=== PATIENT | female | born 1975 | race Caucasian/White ===

== ENCOUNTER 2016-08-29 08:49 | Emergency (ER) | payer OTHER ==
[2016-08-29 09:08] VITALS: BP 137/62; PULSE 78; RESP 18; TEMP 98; O2SAT 97
[2016-08-29] MEDS ORDERED: predniSONE 20 MG TAB PO ONE (09:35)
--- NOTE | 2016-08-29 09:42 | UCPHY ---
H & P Time Seen by Provider: 08/29/16 09:26 Patient Type: Established HPI/ROS: This patient has a itchy rash that is diffuse in location for 19 days now. She is uncertain of the trigger for the symptoms. She did start Singulair 3 days prior to the onset of the rash that was initially truncal in location and a day 5 after starting Singulair the rash spread to extremities. She then DC Singulair 14 days ago and was seen in the [facility] started on a Medrol Dosepak with partial improvement. However the day after finishing her Medrol Dosepak the symptoms are worsening again. She saw her primary care physician on Tuesday the who did blood tests concerned over potential Churg- Kwan syndrome. The patient reports despite [id number] cortisone cream , and Benadryl she has significant itching that is making sleep difficult. She realized that she started a new detergent for her laundry shortly before the onset of the symptoms as well and recently changed back to her original detergent after her visit with her primary care physician and we wash all clothing with original detergent. She can think of no other potential allergens. ROS: No fevers. She reports no wheezing or shortness of breath. No lightheadedness. No intraoral lesions. No hematuria. No flank pain. Over the past 2 days this patient reports onset of mild dysuria. She reports her urine is also darker than usual. 7 point ROS is otherwise negative Past Medical/Surgical History: I reviewed labs for from her visit with her primary care physician's office on the which reveals a normal CBC and chemistries immunology labs reveal elevated IgE. Other immunoglobulins are at normal levels. Physical Exam: General Appearance: Alert, no distress. Eyes: Pupils equal and round no pallor or injection. ENT, Mouth: Mucous membranes moist. No intraoral lesions. Respiratory: There are no retractions, lungs are clear to auscultation. No wheezing. Cardiovascular: Regular rate and rhythm. Gastrointestinal: Abdomen is soft and nontender, no masses, bowel sounds normal. Neurological: Alert with no focal deficits. Skin: She has diffuse erythematous papular rash that blanches easily with pressure. No petechia or purpura. No desquamation or erosive lesions. No fluctuant lesions are noted. The distribution of this rash is primarily truncal and proximal extremities. No significant facial lesions. Musculoskeletal: Neck is supple nontender. Extremities are symmetrical, full range of motion. Psychiatric: Mood and affect normal. DIFFERENTIAL DIAGNOSIS: After history and physical exam differential diagnosis was considered for allergic dermatitis, other allergic immune process, cystitis , rule out proteinuria, hematuria or other evidence of nephropathy Constitutional: Initial Vital Signs Temperature (C) 36.6 C 08/29/16 09:06 Heart Rate 78 08/29/16 09:06 Respiratory Rate 18 08/29/16 09:06 Blood Pressure 137/62 H 08/29/16 09:06 O2 Sat (%) 97 08/29/16 09:06 O2 Delivery Mode Room Air Allergies/Adverse Reactions: montelukast sodium [From [employer] Allergy (Verified 08/29/16 09:05) Home Medications: Medication Instructions Recorded Escitalopram Oxalate [Lexapro 10 07/03/13 MG (RX)] Escitalopram Oxalate [Lexapro 10 10 mg PO 07/03/13 MG (RX)] Hydrocortisone Acetate [Anusol-Hc] 21 gm RC BID #1 oint..gm. 07/03/13 Levothyroxine [Synthroid 25 mcg mcg PO DAILY06 07/03/13 (RX)] Lidocaine 2% Jelly [Lidocaine 2% 1 hood MM Q6 PRN #1 jelly 07/03/13 Jelly (RX)] Lisinopril [Zestril 10 mg (RX)] 10 mg PO DAILY 07/03/13 Nitrofurantoin Macrobid [Macrobid 100 mg PO BID #10 cap 08/29/16 100 mg (RX)] hydrOXYzine HCL [Hydroxyzine HCl] 50 - 100 mg PO QID PRN #30 tablet 08/29/16 predniSONE 60 mg PO DAILY #22 tab 08/29/16 MDM/Departure - MDM Medications Given: Discontinued Medications Prednisone (Prednisone) 60 mg PO EDNOW ONE Stop: 08/29/16 09:36 Last Admin: 08/29/16 09:45 Dose: 60 mg ED Course/Re-evaluation: Prednisone 60 mg p. o. I counseled her regarding allergic dermatitis. Will start her on the prednisone course with follow up with Dr. Menendez-fountain server for any ongoing symptoms. No clinical evidence to suggest anaphylaxis or other complicating factors this time. I discharged the patient with the diagnosis of allergic dermatitis explain that the urine was still pending. I will call her with the results appears positive for cystitis and fits with her dysuria symptoms. Will add Macrobid antibiotic. We called the patient and informed her of the bladder infection a called in the Macrobid prescription. - Depart Disposition: Home, Routine, Self-Care Clinical Impression: Allergic dermatitis Condition: Good Instructions: Dermatitis (ED), Urinary Tract Infection in Women (ED) Additional Instructions: Diagnosis: Allergic dermatitis 2. Bladder infection Plan: Prednisone as prescribed Hydroxyzine the antihistamine Follow up with Dr. Menendez-fountain server for any ongoing symptoms Macrobid antibiotic for bladder infection A review of her labs revealed elevated allergy related antibodies consistent with allergic reaction. Prescriptions: hydrOXYzine HCL [Hydroxyzine HCl] 50 - 100 mg PO QID PRN #30 tablet PRN Reason: Itching predniSONE 60 mg PO DAILY #22 tab Referrals: MATT RIBEIRO [Primary Care Provider] - As per Instructions PRANAV MENENDEZ [Medical Doctor] - As per Instructions - PQRS PQRS Measurement: NA
[2016-08-29 09:51] LABS: COLOR YELLOW; LEUKOCYTE ESTERASE,URINE TRACE (NEGATIVE); NITRITE,URINE NEGATIVE (NEGATIVE); PH,URINE 7.5 (5.0-7.5)
[2016-08-29 10:05] LABS: BACTERIA 1+ /hpf (NONE SEEN); RBC,URINE 0-1 /hpf (0-3)
== END 2016-08-29 09:49 | disposition home or self-care (01) ==
LOC: CED 08:49
DX: L23.9 Allergic contact dermatitis, unspecified cause (principal); N30.90 Cystitis, unspecified without hematuria
CPT/HCPCS: 81003-PO; 81015-PO; 99214-PO; G0463-PO

== ENCOUNTER → 2017-04-19 | Outpatient (CLI) | payer OTHER | LOC: FIMAGING 15:10 | PROVIDERS: ATTEND Obstetrics & Gynecology | DX: Z12.31 Encounter for screening mammogram for malignant neoplasm of breast (principal) | CPT/HCPCS: G0202 ==

== ENCOUNTER → 2018-06-20 | Outpatient (CLI) | payer OTHER | LOC: FIMAGING 15:08 | PROVIDERS: ATTEND Nurse Practitioner Adult Health | DX: Z12.31 Encounter for screening mammogram for malignant neoplasm of breast (principal) ==